=== PATIENT | male | born 1965 | race Asian ===

== ENCOUNTER 2023-10-17 17:48 | Inpatient (IN) | payer MEDICAID ==
[~2023-10-17] VITALS: Ht 177.8 cm; Wt 64.0 kg
[2023-10-17 18:32] LABS: BASOPHILS % (AUTO) 0.9 % (0.0-2.0); EOSINOPHILS # (AUTO) 0.1 K/uL (0.0-0.7); EOSINOPHILS % (AUTO) 3.5 % (0.0-6.0); HEMATOCRIT 42 % (39-51); HEMOGLOBIN 13.5 g/dL (13.5-17.5); LYMPHOCYTES # (AUTO) 1.3 K/uL (0.8-4.8); LYMPHOCYTES % (AUTO) 36.3 % (20.0-44.0); MEAN CORPUSCULAR HEMOGLOBIN 26 PG (26.0-33.0); MEAN CORPUSCULAR HGB CONC 32 g/dl (31.0-36.0); MEAN CORPUSCULAR VOLUME 81 fL (80-96); MONOCYTES # (AUTO) 0.5 K/uL (0.1-1.30); MONOCYTES % (AUTO) 12.9 % (2.0-12.0); NEUTROPHILS # (AUTO) 1.7 K/uL (1.8-8.9); NEUTROPHILS % (AUTO) 46.4 % (43.0-81.0); PLATELET COUNT (AUTO) 187 K/uL (150-450); RED BLOOD CELL COUNT(AUTO) 5.21 MIL/uL (4.5-6.0); RED CELL DISTRIBUTION WIDTH 16.7 % (11.5-15.0); WHITE BLOOD COUNT (AUTO) 3.7 K/uL (4.3-11.0)
[2023-10-17 18:51] LABS: CALCIUM, SERUM 8.5 mg/dL (8.5-10.1); CARBON DIOXIDE 31 mmol/L (21-32); CHLORIDE 103 mmol/L (98-107); CREATININE 1.2 mg/dL (0.6-1.3); GLUCOSE 94 mg/dL (74-106); POTASSIUM 4.8 mmol/L (3.5-5.1); SODIUM SERUM 137 mmol/L (136-145); UREA NITROGEN, BLOOD 19 mg/dL (7-18)
[2023-10-17] MEDS ORDERED: ASPIRIN 81 MG TAB.CHEW ONE (19:27)
[2023-10-17] MEDS: ASPIRIN 81 MG TAB.CHEW PO ONE (19:28)
[2023-10-17 22:57] VITALS: BP 105/81; TEMP 98.2; O2SAT 97
[2023-10-17] MEDS ORDERED: ONDANSETRON HCL/PF 4 MG/2 ML VIAL IVP PRN (23:00)
[2023-10-17] MEDS ORDERED: ACETAMINOPHEN 325 MG TABLET PO PRN (23:00)
[2023-10-17] MEDS ORDERED: ZOLPIDEM TARTRATE 5 MG TABLET PO PRN (23:00)
[2023-10-18] VITALS (8 sets, daily range): BP systolic 77–127; BP diastolic 60–81; TEMP 97.9–99.3; O2SAT 96–98
[2023-10-18] MEDS: IV NS 0.9% 500 ML BAG IV ONE (05:04)
[2023-10-18] MEDS ORDERED: MELA1TAB27 PO (05:10)
[2023-10-18] MEDS ORDERED: FURO20TA4 PO (05:10)
[2023-10-18] MEDS ORDERED: ATOR40TA PO (05:10)
[2023-10-18] MEDS ORDERED: AMIN30LI2 PO (05:10)
[2023-10-18] MEDS ORDERED: IPRA3AMP22 IH ×2 (05:10→09:19)
[2023-10-18] MEDS ORDERED: CARV6.25 PO (05:10)
[2023-10-18] MEDS ORDERED: GUAI5SYR PO (05:10)
[2023-10-18] MEDS ORDERED: TAMS-12 PO (05:10)
[2023-10-18] MEDS ORDERED: SENN-18 PO (05:10)
[2023-10-18] MEDS ORDERED: SENN-261 PO (05:10)
[2023-10-18] MEDS ORDERED: ASPI-1420 PO (05:10)
[2023-10-18] MEDS ORDERED: DAPA10TA PO (05:10)
[2023-10-18] MEDS ORDERED: SCOP1PAT11 TD (05:10)
[2023-10-18] MEDS ORDERED: ACET325C7 PO (05:10)
[2023-10-18] MEDS ORDERED: NA P133E RC (05:10)
[2023-10-18] MEDS ORDERED: MAGN400O21 PO (05:10)
[2023-10-18] MEDS ORDERED: BISA-79 GT (05:10)
[2023-10-18 07:05] LABS: CALCIUM, SERUM 8.4 mg/dL (8.5-10.1); CREATININE 1.2 mg/dL (0.6-1.3); MAGNESIUM 2.2 mg/dL (1.8-2.4); PHOSPHORUS 3.4 mg/dL (2.5-4.9); POTASSIUM 3.2 mmol/L (3.5-5.1)
[2023-10-18 07:19] LABS: BASOPHILS % (AUTO) 0.8 % (0.0-2.0); EOSINOPHILS # (AUTO) 0.1 K/uL (0.0-0.7); EOSINOPHILS % (AUTO) 4.3 % (0.0-6.0); HEMATOCRIT 39 % (39-51); HEMOGLOBIN 12.3 g/dL (13.5-17.5); LYMPHOCYTES % (AUTO) 31.5 % (20.0-44.0); MEAN CORPUSCULAR HEMOGLOBIN 26 PG (26.0-33.0); MEAN CORPUSCULAR HGB CONC 32 g/dl (31.0-36.0); MEAN CORPUSCULAR VOLUME 80 fL (80-96); MONOCYTES # (AUTO) 0.5 K/uL (0.1-1.30); MONOCYTES % (AUTO) 13.7 % (2.0-12.0); NEUTROPHILS # (AUTO) 1.6 K/uL (1.8-8.9); NEUTROPHILS % (AUTO) 49.7 % (43.0-81.0); PLATELET COUNT (AUTO) 172 K/uL (150-450); RED BLOOD CELL COUNT(AUTO) 4.81 MIL/uL (4.5-6.0); WHITE BLOOD COUNT (AUTO) 3.3 K/uL (4.3-11.0)
[2023-10-18] MEDS ORDERED: HYDROGEL DRESSING 90 GM TUBE TP PRN (09:00)
[2023-10-18] MEDS: CARVEDILOL 6.25 MG TABLET PO SCH (09:00)
[2023-10-18] MEDS: HYDROGEL DRESSING 90 GM TUBE TP SCH (09:00)
[2023-10-18] MEDS ORDERED: ASPIRIN EC 81 MG TABLET.DR PO SCH (09:00)
[2023-10-18] MEDS ORDERED: ARGI1POW13 PO (09:19)
[2023-10-18] MEDS ORDERED: MULT-213 PO (09:19)
[2023-10-18] MEDS ORDERED: MELA3TAB41 PO (09:19)
[2023-10-18] MEDS ORDERED: ASCO500T10 PO (09:19)
[2023-10-18] MEDS ORDERED: MAGN400O6 PO (09:19)
[2023-10-18] MEDS ORDERED: BISA10SU11 RC (09:19)
[2023-10-18] MEDS: TAMSULOSIN 0.4 MG CAP.SR.24H PO SCH (09:26)
[2023-10-18] MEDS: POTASSIUM CHLORIDE 20 MEQ TAB.PRT.SR PO SCH (09:26)
[2023-10-18] MEDS: ASPIRIN EC 81 MG TABLET.DR PO SCH (09:27)
[2023-10-18] MEDS: PANTOPRAZOLE 40 MG TABLET.DR PO SCH (09:27)
[2023-10-18] MEDS: ENOXAPARIN SODIUM 40 MG/0.4 ML DISP.SYRIN SQ SCH (09:28)
[2023-10-18] MEDS ORDERED: POTASSIUM CHLORIDE 20 MEQ TAB.PRT.SR PO ONE (13:00)
[2023-10-18] MEDS: ATORVASTATIN 40 MG TABLET PO SCH (18:14)
[2023-10-19] VITALS: BP 97/79; TEMP 98.2; O2SAT 97
[2023-10-19] MEDS: Z GUARD REMEDY 4 OZ OINT TP PRN (03:26)
[2023-10-19 04:00] VITALS: BP 100/70; TEMP 98.6; O2SAT 96
[2023-10-19 07:18] LABS: BASOPHILS % (AUTO) 0.4 % (0.0-2.0); EOSINOPHILS # (AUTO) 0.1 K/uL (0.0-0.7); EOSINOPHILS % (AUTO) 2.1 % (0.0-6.0); HEMATOCRIT 39 % (39-51); HEMOGLOBIN 12.1 g/dL (13.5-17.5); LYMPHOCYTES # (AUTO) 1.3 K/uL (0.8-4.8); LYMPHOCYTES % (AUTO) 33.7 % (20.0-44.0); MEAN CORPUSCULAR HEMOGLOBIN 25 PG (26.0-33.0); MEAN CORPUSCULAR HGB CONC 31 g/dl (31.0-36.0); MEAN CORPUSCULAR VOLUME 81 fL (80-96); MONOCYTES # (AUTO) 0.5 K/uL (0.1-1.30); MONOCYTES % (AUTO) 13.7 % (2.0-12.0); NEUTROPHILS # (AUTO) 1.9 K/uL (1.8-8.9); NEUTROPHILS % (AUTO) 50.1 % (43.0-81.0); PLATELET COUNT (AUTO) 176 K/uL (150-450); RED BLOOD CELL COUNT(AUTO) 4.77 MIL/uL (4.5-6.0); RED CELL DISTRIBUTION WIDTH 16.1 % (11.5-15.0); WHITE BLOOD COUNT (AUTO) 3.8 K/uL (4.3-11.0)
[2023-10-19 08:00] VITALS: BP 98/71; TEMP 98.4; O2SAT 97
[2023-10-19 08:07] LABS: CALCIUM, SERUM 8.6 mg/dL (8.5-10.1); CREATININE 1.3 mg/dL (0.6-1.3); POTASSIUM 3.9 mmol/L (3.5-5.1)
[2023-10-19 08:08] LABS: MAGNESIUM 2.3 mg/dL (1.8-2.4); PHOSPHORUS 2.8 mg/dL (2.5-4.9)
[2023-10-19 16:00] VITALS: BP 98/71; TEMP 98.4; O2SAT 97
[2023-10-19] MEDS: IV NS 0.9% 1,000 ML IV PRN (17:51)
[2023-10-19 20:00] VITALS: BP 102/72; TEMP 97.9; O2SAT 99
[2023-10-20] VITALS: BP 96/72; TEMP 99; O2SAT 96
[2023-10-20 04:00] VITALS: BP 93/69; TEMP 99.1; O2SAT 96
[2023-10-20 07:00] VITALS: BP 101/75; TEMP 98.2; O2SAT 96
[2023-10-20 09:00] VITALS: BP 101/75
[2023-10-20 14:29] LABS: BASOPHILS % (AUTO) 0.9 % (0.0-2.0); EOSINOPHILS # (AUTO) 0.1 K/uL (0.0-0.7); EOSINOPHILS % (AUTO) 2.2 % (0.0-6.0); HEMATOCRIT 38 % (39-51); LYMPHOCYTES # (AUTO) 1.3 K/uL (0.8-4.8); LYMPHOCYTES % (AUTO) 39.2 % (20.0-44.0); MEAN CORPUSCULAR HEMOGLOBIN 26 PG (26.0-33.0); MEAN CORPUSCULAR HGB CONC 32 g/dl (31.0-36.0); MEAN CORPUSCULAR VOLUME 81 fL (80-96); MONOCYTES # (AUTO) 0.5 K/uL (0.1-1.30); MONOCYTES % (AUTO) 16.3 % (2.0-12.0); NEUTROPHILS # (AUTO) 1.3 K/uL (1.8-8.9); NEUTROPHILS % (AUTO) 41.4 % (43.0-81.0); PLATELET COUNT (AUTO) 160 K/uL (150-450); RED BLOOD CELL COUNT(AUTO) 4.69 MIL/uL (4.5-6.0); RED CELL DISTRIBUTION WIDTH 15.8 % (11.5-15.0); WHITE BLOOD COUNT (AUTO) 3.2 K/uL (4.3-11.0)
[2023-10-20 14:57] LABS: ALBUMIN 2.5 g/dL (3.4-5.0); BILIRUBIN,TOTAL 0.4 mg/dL (0.2-1.0); CREATININE 1.2 mg/dL (0.6-1.3); PHOSPHORUS 2.9 mg/dL (2.5-4.9); POTASSIUM 3.9 mmol/L (3.5-5.1)
[2023-10-20 16:40] LABS: EOSINOPHILS % (MANUAL) 6 % (0-4); LYMPHOCYTES % (MANUAL) 42 % (16-48); MONOCYTES % (MANUAL) 9 % (0-11.0); NEUTROPHILS % (MANUAL) 43 (42-76)
[2023-10-20 16:41] LABS: ANISOCYTOSIS 1+; PLATELET ESTIMATE ADEQUATE; ROULEAUX 1+
== END 2023-10-20 16:18 | DRG 198 ==
LOC: ER 17:50 → TELE 22:31
PROVIDERS: ADMIT Nurse Practitioner Acute Care; ATTEND Nurse Practitioner Acute Care
DX: I25.10 Atherosclerotic heart disease of native coronary artery without angina pectoris (principal); I13.0 Hypertensive heart and chronic kidney disease with heart failure and stage 1 through stage 4 chronic kidney disease, or unspecified chronic kidney disease; I27.20 Pulmonary hypertension, unspecified; E11.22 Type 2 diabetes mellitus with diabetic chronic kidney disease; I50.32 Chronic diastolic (congestive) heart failure; I48.0 Paroxysmal atrial fibrillation; G40.909 Epilepsy, unspecified, not intractable, without status epilepticus; E78.5 Hyperlipidemia, unspecified; E87.6 Hypokalemia; N18.9 Chronic kidney disease, unspecified; Z95.2 Presence of prosthetic heart valve; Z74.09 Other reduced mobility; L85.3 Xerosis cutis; S90.822A Blister (nonthermal), left foot, initial encounter; X58.XXXA Exposure to other specified factors, initial encounter; Y92.9 Unspecified place or not applicable; Z79.51 Long term (current) use of inhaled steroids; Z79.82 Long term (current) use of aspirin; Z79.899 Other long term (current) drug therapy
CPT/HCPCS: 36415; 71045-TC; 80048-TC; 80053-TC; 80061-TC; 83735-TC; 84100-TC; 84484-TC; 85025-TC; 87081-TC; 92526; 92611-TC; 93307-TC; 97110-TC; 97530-TC; A6248; G0378; J1650; J7030; J7040